=== PATIENT | male | born 1930 | race Caucasian/White ===

== ENCOUNTER 2016-09-21 18:21 | Inpatient (IN) | payer BC ==
--- NOTE | ~2016-09-21 | IDS ---
Interim Discharge Summary [facility] [address] [place]. [address] NAME: ELIANE FRANCES : [birth year] STATUS : ADM IN [facility]#: [id number] AGE: 85 ADM/REG DATE : 09/21/16 MR#: [id number] REPORT SERV DATE: 09/25/16 DICTATED BY: JR. LANTIGUA WILLIAM JOHN DATE: 09/25/16 REPORT STATUS : Draft TRANSCRIBED BY: BARBARA DATE: 09/25/16 ADMISSION DATE: 09/21/2016 DISCHARGE DATE: WORKING DIAGNOSES: 1. Small bowel obstruction. 2. Right intertrochanteric hip fracture status post open reduction and internal fixation by Dr. Pascal on 09/22/2016. 3. Postoperative anemia. 4. Hypothyroidism. 5. Essential hypertension. 6. Gastroesophageal reflux disease. 7. History of coronary artery disease status post AICD and angioplasty. 8. Paroxysmal atrial fibrillation. 9. Diabetes mellitus type 2 with hemoglobin A1c of 5.3. 10.Urinary tract infection status post Rocephin. 11.Acute on chronic kidney disease, which has largely resolved. OPERATIONS, PROCEDURES, AND TREATMENTS: Include: 1. Open reduction and internal fixation by Dr. Pascal on 09/22/2016. 2. Chest x-ray done on 09/21/2016, which showed no acute cardiopulmonary process. 3. Hip x-ray done on 09/21/2016, which showed comminuted intertrochanteric right femur fracture. 4. KUB done on 09/21/2016, which showed no acute cardiopulmonary disease. There was residual contrast in the colon. Gas was present throughout the small bowel and colon with minimal small bowel distention likely to be ileus. 5. Followup KUB done on 09/22/2016, which showed stable moderate fecal burden with residual oral contrast throughout the colon. 6. KUB done on 09/25/2016, which again showed oral contrast. CURRENT MEDICATIONS: Please see the daily progress note. HOSPITAL COURSE: Briefly, the patient is an 85-year-old with history of coronary artery disease, who was transferred from [facility] after a fall with resultant right hip fracture. The patient had been admitted to [facility] on 09/19/2016 with abdominal pain, nausea, vomiting, and constipation. He had an NG placed for decompression. He was also found to have acute kidney injury with a creatinine of 1.7 as well as urinary tract infection. For further details on initial exam, please see Dr. Maloney's dictated history and physical. The patient was admitted to [facility]. He was seen in consultation by Dr. Pascal, and underwent open reduction and internal fixation without complication. Regarding the ileus versus small-bowel obstruction, the patient had multiple serial KUBs which continued to show contrast throughout the bowel, but no abnormal dilations. The patient tolerated the diet. He will be started on MiraLAX. Interim Discharge Summary [place] [id number] [facility] [place]. [address] NAME: ELIANE FRANCES : [birth year] STATUS : ADM IN PAT#: [id number] AGE: 85 ADM/REG DATE : 09/21/16 MR#: [id number] REPORT SERV DATE: 09/25/16 DICTATED BY: JR. LANTIGUA WILLIAM JOHN DATE: 09/25/16 REPORT STATUS : Draft TRANSCRIBED BY: MODL DATE: 09/25/16 Regarding the patient's anemia, his hemoglobin has gone from 9.1 to 7.3, there was no obvious bleeding. The plan is to recheck in the morning, and if his hemoglobin is reasonably stable, we will discharge the patient. Regarding the patient's urinary tract infection, completed a course of Rocephin. Regarding his acute on chronic kidney disease, he is near baseline with a creatinine of 1.2 presently. The plan is for the patient to be observed to check a KUB. He had H and H in the morning. If these studies are normal, the patient can be discharged at any time. For today's exam and laboratory, please see daily progress note. WJF/BARBARA Saad Lantigua Jr, MD / [id number] CC: Saad Lantigua Jr, MD
--- NOTE | ~2016-09-21 | OP ---
Record Of Operation [facility] [address] [place]. [address] NAME: ELIANE FRANCES : [birth year] STATUS : ADM IN [facility]#: [id number] AGE: 85 ADM/REG DATE : 09/21/16 MR#: [id number] REPORT SERV DATE: 09/23/16 DICTATED BY: CHANTAL OROURKE DATE: 09/22/16 REPORT STATUS : Draft TRANSCRIBED BY: MODDelvis DATE: 09/22/16 DATE OF PROCEDURE: 09/22/2016 PREOPERATIVE DIAGNOSIS: Intertrochanteric femur fracture. POSTOPERATIVE DIAGNOSIS: Intertrochanteric femur fracture. OPERATION: [place]/intertrochanteric femur fracture. SIDE: Right. SIZE: See chart. ANESTHESIA: See chart. ESTIMATED BLOOD LOSS: 100 mL. TOURNIQUET TIME: None. SPECIMENS: None. ANESTHESIA: See chart. PROCEDURE: The patient was taken to the preoperative holding area. The patient was appropriately identified, marked and the consent form carefully checked. The patient was taken then to the operating room and anesthetic was induced per the anesthesiologist. The patient was carefully positioned, carefully padded, prepped and draped on the fracture table. Prior to the surgical prep a closed reduction was obtained by closed method using fluoroscopic guidance. The patient was then prepped and draped in the usual sterile fashion. Using fluoroscopic guidance, a straight lateral incision was made. This was followed by electrocautery through the fat, the IT band and the vastus, staying towards the posterior portion of the lateral vastus to decrease the amount of muscle tissue that was cut through. Meticulous hemostasis was obtained with electrocautery. Lateral femoral cortex was exposed further with periosteal elevator and appropriate retraction. A guide was then used to place a guidewire basically in the center of the head on AP and lateral x-ray views. This was followed by depth gauge and then triple reamer. Lag screw was placed over the guidewire. The sliding plate was then placed and impacted and checked to be sure it was down snug. The plate was held with a plate clamp distally and reduction again checked. The screw holes in the plate were then filled with screws in the standard fashion with drill depth gauge and then self-tapping screw placement. The screws were then tightened by hand. Record Of Operation [facility] [address] [place] [address] NAME: ELIANE FRANCES : [birth year] STATUS : ADM IN PAT#: [id number] AGE: 85 ADM/REG DATE : 09/21/16 MR#: [id number] REPORT SERV DATE: 09/23/16 DICTATED BY: CHANTAL OROURKE DATE: 09/22/16 REPORT STATUS : Draft TRANSCRIBED BY: MODL DATE: 09/22/16 All traction was released and the compression screw placed and tightened. Again x-ray views were checked to ascertain reduction and screw length. The wound was then irrigated and closed with sutures in the vastus. A medium drain was placed distally anteriorly between the vastus and the IT band, then sutured on the IT band, 2-0 subcutaneous, and keara in the skin. Wound dressed sterilely. The patient was awakened and carefully transferred to the bed and transferred to the recovery room without incident. COUNTS: Correct. WTB/MODL Ruby Orourke M.D. / [id number] CC: Jason Mccann MD
--- NOTE | ~2016-09-21 | HP ---
History And Physical [place] [id number] [place]. [address] NAME: ELIANE MEYER : [birth year] STATUS : ADM IN [facility]#: [id number] AGE: 85 ADM/REG DATE : 09/21/16 MR#: [id number] REPORT SERV DATE: 09/21/16 DICTATED BY: CHAPITO KELLY DATE: 09/21/16 REPORT STATUS : Draft TRANSCRIBED BY: MODDelvis DATE: 09/21/16 DATE OF ADMISSION: 09/21/2016 POINT OF ENTRY: Transfer from [facility]. PRIMARY CARE PHYSICIAN: Martin Amezcua MD PRIMARY ORTHOPEDIC SURGEON: Ruby Pascal M.D. CHIEF COMPLAINT: Fall with right hip fracture. HISTORY OF PRESENT ILLNESS: Mr. Meyer is an 85-year-old gentleman with history of coronary artery disease with prior PCI, hypertension, gastroesophageal reflux disease, non-insulin- dependent diabetes mellitus type 2, as well as a history of paroxysmal atrial fibrillation on aspirin, who is being transferred from [facility] for a fall with resultant right hip fracture. The patient was admitted to [facility] on 09/19/2016 for reports of abdominal pain, nausea, vomiting, and obstipation and found to have evidence of a small- bowel obstruction versus ileus on CT scan. NG tube was placed for decompression. The patient also found to have evidence of acute kidney injury with a creatinine of 1.7, urinary tract infection. Today, while he was down in Radiology at [facility] when he was transferring from the x-ray table to the wheelchair he suffered a mechanical fall striking his right side and right hip region. He denies loss of consciousness. Denies any head trauma. Subsequent x-rays reportedly showed a right hip fracture and reports I do not have the reports nor am I able to see the x-ray images. The patient was subsequently transferred to [facility] for high level of care so that the patient to be seen by Dr. Pascal for surgical correction. The patient states that he has had a bowel movement earlier today. He currently denies any abdominal pain, nausea, or vomiting. An NG tube is in place, however, is clamped at this. He denies any recent troubles with fevers, night sweats, chills, chest pain, palpitations, shortness of breath, dysuria, melena, hematochezia, hemoptysis, or hematemesis. Comprehensive review of systems otherwise negative unless listed in history of present illness. Again, the patient was diagnosed with urinary tract infection at [facility] on admission, placed on Rocephin. He has an NG tube in place with small-bowel obstruction. He is receiving IV fluids for elevated creatinine presumably above his baseline and so his nephrotoxic medications were being held. PREVIOUS MEDICAL HISTORY: 1. Coronary artery disease with prior myocardial infarction and PCI. 2. Hypertension. History And Physical [address] [address] NAME: ELIANE MEYER : [birth year] STATUS : ADM IN [facility]#: [id number] AGE: 85 ADM/REG DATE : 09/21/16 MR#: [id number] REPORT SERV DATE: 09/21/16 DICTATED BY: CHAPITO KELLY DATE: 09/21/16 REPORT STATUS : Draft TRANSCRIBED BY: MODDelvis DATE: 09/21/16 3. Gastroesophageal reflux disease. 4. Dhe-ooapian-janorgzrh diabetes mellitus type 2. 5. Prior history of small-bowel obstruction. 6. Prior history of diverticulitis requiring partial colectomy. 7. Paroxysmal atrial fibrillation, on aspirin. SURGICAL HISTORY: 1. Right total knee. 2. Appendectomy. 3. Cataract surgery. 4. Partial colectomy. 5. Bilateral inguinal hernia repair. 6. Pacemaker insertion. ALLERGIES: NO KNOWN DRUG ALLERGIES. HOME MEDICATIONS: Pending at the time of dictation. SOCIAL HISTORY: He is a former smoker. Denies any alcohol or illicits. Currently lives alone. FAMILY MEDICAL HISTORY: Mother of old age in her mid 90s. Father of complications of motor vehicle accident. Siblings with dementia as well as with complication of motor vehicle accident. LABS AND IMAGING: All obtained from transfer records from [facility]. These are all dated 09/21/2016 unless noted otherwise: 1. White count 5.7, hemoglobin 13.7, hematocrit is 42.9, and platelet count is 120. 2. Sodium is 141, potassium 4.7, chloride 110, carbon dioxide 22, BUN 28, creatinine 1.7, glucose is 152, calcium is 8.9, protein is 6.2, albumin is 3.4, bilirubin is 1.4, ALT is 13, AST is 16, and alkaline phosphatase is 55. 3. Urinalysis from 09/20/2016 shows spec gravity of 1.018, hazy, 68 white blood cells per high-power with 3+ leukocyte esterase, and few bacteria. 4. CT scan of the abdomen and pelvis dated 09/19/2016 shows an ileus versus possible small- bowel obstruction as well as cholelithiasis. 5. Again, I do not have the radiology report nor the images of the pelvic and right hip showing a right hip fracture. PHYSICAL EXAMINATION: VITAL SIGNS: Temperature is 98.3 degrees Fahrenheit, pulse is 83, respirations 18, saturating 98% on room air, and blood pressure is 120/56. GENERAL: The patient is awake, alert, in no acute distress. Resting comfortably in bed. He is a well-developed, well-nourished, elderly male. Family is at bedside. HEENT: Atraumatic and normocephalic. Moist mucous membranes. Pupils are equal, round, and reactive to light and accommodation. Extraocular eye movements intact. No scleral icterus. NECK: No jugular venous distention. No carotid bruits. CARDIAC: Regular rate and rhythm. No murmurs or gallops. Normal S1, S2. History And Physical [address] [address] NAME: ELIANE MEYER : [birth year] STATUS : ADM IN [facility]#: [id number] AGE: 85 ADM/REG DATE : 09/21/16 MR#: [id number] REPORT SERV DATE: 09/21/16 DICTATED BY: CHAPITO KELLY DATE: 09/21/16 REPORT STATUS : Draft TRANSCRIBED BY: BARBARA DATE: 09/21/16 LUNGS: Clear to auscultation bilaterally. No wheezes, rhonchi, or crackles. ABDOMEN: Hypoactive bowel sounds throughout but no rebound, guarding, or rigidity. Nontender, nondistended. Again, NG tube is in place but currently clamped. EXTREMITIES: Warm, perfused. No cyanosis, clubbing, or edema. The right hip is foreshortened and inward rotated but is intact neurovascularly distally. SKIN: Warm and dry. PSYCH: Affect appropriate. NEURO: Alert and oriented x3. Cranial nerves 2 through 12 grossly intact. Speech is normal. Gait not assessed. ASSESSMENT: Mr. Meyer is an 85-year-old gentleman, admitted on 09/19/2016 to his [facility] for small-bowel obstruction and urinary tract infection who suffered a mechanical fall while there with resultant right hip fracture. PROBLEM LIST: 1. Right hip fracture status post mechanical fall, present on admission. 2. Small-bowel obstruction versus ileus. 3. Acute kidney injury. 4. Urinary tract infection. 5. Hypertension. 6. Dio-clukhdt-ufvmaoroc diabetes mellitus type 2. PLAN: 1. Right hip fracture status post fall. We will consult Dr. Pascal of Orthopedic Surgery as the patient has seen him in the past. We will obtain chest x-ray, EKG, as well as plain films of the right hip and pelvic region in anticipation of surgery tomorrow. 2. Small-bowel obstruction. The patient denies any current abdominal pain, nausea, or vomiting. He reported a bowel movement earlier today. We will check a KUB, and if it does not show obvious evidence of obstruction, we will remove the NG tube but continue to keep him n.p.o. in anticipation of surgery tomorrow. 3. Urinary tract infection. The patient has received Rocephin for least two days at [facility]. We will plan for a total of five-day course of Rocephin. 4. Acute kidney injury. Continue to hold the patient's nephrotoxic medications. Provide IV fluid hydration. Follow up BMP. 5. Hypertension. The patient currently well controlled at this time. 6. Xoa-fqawgpo-xxmtmwwiy diabetes mellitus type 2. Place the patient on level 2 insulin sliding scale. 7. DVT prophylaxis. Heparin subcu. CODE STATUS: The patient wished to be full code. JCB/MODL Chapito Kelly MD History And Physical [address] [address] NAME: ELIANE MEYER : [birth year] STATUS : ADM IN [facility]#: [id number] AGE: 85 ADM/REG DATE : 09/21/16 MR#: [id number] REPORT SERV DATE: 09/21/16 DICTATED BY: CHAPITO KELLY DATE: 09/21/16 REPORT STATUS : Draft TRANSCRIBED BY: BARBARA DATE: 09/21/16 / [id number] CC: MD Martin Saravia MD W. Timothy Ballard, M.D.
--- NOTE | ~2016-09-21 | DS ---
Discharge Summary [facility] [address] [place]. [address] NAME: ELIANE FRANCES : [birth year] STATUS : DIS IN PAT#: [id number] AGE: 85 ADM/REG DATE : 09/21/16 MR#: [id number] REPORT SERV DATE: 09/29/16 DICTATED BY: JASON BOB DATE: 09/28/16 REPORT STATUS : Draft TRANSCRIBED BY: MODDelvis DATE: 09/28/16 ADMISSION DATE: 09/21/2016 DISCHARGE DATE: 09/28/2016 DISCHARGE DIAGNOSES: 1. Right intertrochanteric hip fracture, status post open reduction and internal fixation by Dr. Pascal. 2. Small bowel obstruction. 3. Postoperative anemia. 4. Hypothyroidism. 5. Essential hypertension. 6. Gastroesophageal reflux disease. 7. History of coronary artery disease, status post AICD and angioplasty. 8. History of paroxysmal atrial fibrillation. 9. Diabetes mellitus type 2 with hemoglobin A1c of 5.3. 10.Urinary tract infection, status post Rocephin therapy. 11.Acute kidney injury, now resolved. 12.Chronic kidney disease stage 3. CONSULTATIONS: 1. Orthopedic Surgeon, Dr. Alejandro Pascal. 2. Urology. OPERATION DONE DURING THIS ADMISSION: Open reduction and internal fixation by Dr. Pascal. HISTORY OF PRESENT ILLNESS: For detailed HPI, please make reference to Dr. Good Maloney's dictation on 09/21/2016. In brief, this is an 85-year-old male with medical history of coronary artery disease with prior PCI, hypertension, gastroesophageal reflux disease, non- insulin diabetes mellitus type 2, history of paroxysmal atrial fibrillation on aspirin, who was transferred from [facility] after a witnessed fall with resultant right hip fracture. Prior to arrival to [facility], orthopedic surgeon, Dr. Pascal, was contacted by the transfer hospital. Dr. Pascal accepted transfer of this patient for hip fracture repair. The patient was admitted to the Hospitalist Service. Of note, the patient was initially admitted to [facility] with concerns of bowel obstruction. The patient was on NG tube, which was clamped prior to being transferred to [facility]. HOSPITAL COURSE: 1. Right hip fracture, status post open reduction and internal fixation. On arrival to [facility], the patient underwent repair of the right hip, which the patient tolerated well without any significant complications. The patient was evaluated by Physical Therapy. It was noted at the time of discharge that the patient would require further rehabilitation at SNF. 2. Small bowel obstruction. The patient initially presented to [facility] with account of abdominal pain, nausea, and vomiting. CT of the abdomen was concerning for small bowel obstruction. The patient had an NG tube placed at [facility] prior to transfer on arrival to [facility]. The patient's NG tube was connected to Discharge Summary [address] [address] NAME: ELIANE FRANCES : [birth year] STATUS : DIS IN PAT#: [id number] AGE: 85 ADM/REG DATE : 09/21/16 MR#: [id number] REPORT SERV DATE: 09/29/16 DICTATED BY: JASON BOB DATE: 09/28/16 REPORT STATUS : Draft TRANSCRIBED BY: BARBARA DATE: 09/28/16 intermittent suction. The patient continued to have symptomatic relief. Repeat KUB shows significant improvement in the patient's abdominal ileus. The patient's NG tube was subsequently discontinued. The patient was placed on generous laxatives with significant bowel movement. The patient's diet was subsequently advanced from clear liquid diet to regular diet. The patient tolerated regular diet without any nausea, abdominal pain, or vomiting. 3. Urinary tract infection, which was present on admission. The patient was also receiving IV Rocephin prior to being transferred. The patient completed a total of five days IV antibiotics during the course of this admission. 4. Acute kidney injury. The patient's creatinine was initially mildly elevated at 1.71. The patient's creatinine trended down with gentle IV fluids. Etiology of BRUNILDA on chronic CKD likely related to prerenal azotemia secondary to persistent nausea, vomiting, and hypovolemia. 5. Anemia of chronic disease. The patient's hemoglobin was 9.7 on presentation. Postoperative, the patient's hemoglobin trended down to 8.0, remained stable. No evidence of acute blood loss. Heme stool was negative for occult blood. The patient's anemia, likely related to anemia of chronic disease rather than acute blood loss. The patient's hemoglobin remained stable at 8.3 throughout the course of this admission. The patient was advised to continue supplement and follow up with primary care physician as an outpatient. DISCHARGE CONDITION: Stable. DISCHARGE DISPOSITION: SNF. DISCHARGE DIET: Regular diet as tolerated. DICTATED BY: MD BRAULIO SaraviaO/BARBARA Jason Bob MD / [id number] CC: MD Ruby Saravia M.D. James C. Balvich, MD
[~2016-09-21 18:21] MED LIST: ASA5GR PO; C5; CORDARONE PO; GLUCPH PO; LEVOTHYROXIN50 MCG PO; LOP50 PO; MOBIC15 MG PO; PCET PO; PEP20 PO; PRIN2.5 PO; ZOCOR20 PO
[2016-09-21 21:43] LABS: BASOPHILS 0.2 %; BASOPHILS ABSOLUTE 0.01 10/3/uL (0.0-0.16); EOSINOPHILS 0.5 %; EOSINOPHILS ABSOLUTE 0.03 10/3/uL (0.0-0.53); HEMATOCRIT 37.6 % (40.0-51.0); HEMOGLOBIN 12.2 g/dL (13.6-17.8); IMMATURE GRANULOCYTES 0.2 %; IMMATURE GRANULOCYTES ABSOLUTE 0.01 10/3/uL (0.0-0.11); LYMPHOCYTES ABSOLUTE 0.86 10/3/uL (0.67-4.30); MEAN CORPUS HGB CONC 32.4 g/dL (32.0-36.0); MEAN CORPUSCULAR HEMOGLOB 32.1 pg (26.0-34.0); MEAN CORPUSCULAR VOLUME 98.9 fL (80-100); MEAN PLATELET VOLUME 9.6 fL (9.2-13.0); MONOCYTES 12.9 %; MONOCYTES ABSOLUTE 0.85 10/3/uL (0.21-1.20); NEUTROPHILS 73.2 %; NEUTROPHILS ABSOLUTE 4.84 10/3/uL (2.02-8.40); PLATELET COUNT 139 10/3/uL (150-400); WHITE BLOOD CELLS 6.6 10/3/uL (4.5-10.5)
[2016-09-21] MEDS ORDERED: PRIN2.5 PO (21:43)
[2016-09-21 21:44] LABS: MANUAL DIFF NO %
[2016-09-21] MEDS ORDERED: TOPXL50 PO (21:44)
[2016-09-21] MEDS ORDERED: BUM1 PO (21:44)
[2016-09-21] MEDS ORDERED: PEP20 PO (21:44)
[2016-09-21] MEDS ORDERED: CORDARONE PO (21:44)
[2016-09-21] MEDS ORDERED: ASABAYER PO (21:45)
[2016-09-21] MEDS ORDERED: SYN.025B PO (21:45)
[2016-09-21 21:50] LABS: INTERNATIONAL NORMAL RATI 1.2 UNITS (-); PARTIAL THROMBO TIME 32.1 SEC (22.5-37.2)
[2016-09-21 21:52] LABS: PROTIME (NOT ORD) 14.7 SEC (12.0-14.5)
[2016-09-21 21:57] LABS: A/G RATIO 0.8 (0.7-1.9); ALBUMIN 2.7 G/DL (3.5-5.0); ALKALINE PHOSPHATASE 56 U/L (45-117); BUN (BLOOD UREA NITROGEN) 25 MG/DL (6-23); CALCIUM, SERUM 8.7 MG/DL (8.5-10.4); CHLORIDE, SERUM 115 MMOL/L (96-112); CO2 (CARBON DIOXIDE) 22 MMOL/L (24-34); CREATININE 1.55 MG/DL (0.70-1.30); GFR AFRICAN AMERICAN 46 ML/MIN (>=60); GFR NON AFRICAN AMERICAN 40 ML/MIN (>=60); GLOBULIN 3.4 G/DL (2.5-4.1); GLUCOSE, SERUM 108 MG/DL (60-99); POTASSIUM, SERUM 4.3 MMOL/L (3.5-5.3); SGOT(AST) 16 U/L (5-40); SGPT(ALT) 20 U/L (5-65); SODIUM, SERUM 145 MMOL/L (135-148); TOTAL BILIRUBIN 1.3 MG/DL (0-1.2); TOTAL PROTEIN 6.1 G/DL (6.0-8.5)
[2016-09-22 08:26] LABS: FREE T4 1.18 NG/DL (0.76-1.46); ULTRASENSITIVE TSH 5.12 MCIU/ML (0.358-3.740)
[2016-09-22 20:34] LABS: HEMATOCRIT 29.4 % (40.0-51.0); HEMOGLOBIN 9.7 g/dL (13.6-17.8)
[2016-09-22 20:41] LABS: INTERNATIONAL NORMAL RATI 1.2 UNITS (-); PROTIME (NOT ORD) 15.2 SEC (12.0-14.5)
[2016-09-22 20:56] LABS: ALBUMIN 2.7 G/DL (3.5-5.0); ALKALINE PHOSPHATASE 51 U/L (45-117); BUN (BLOOD UREA NITROGEN) 27 MG/DL (6-23); CALCIUM, SERUM 8.5 MG/DL (8.5-10.4); CHLORIDE, SERUM 116 MMOL/L (96-112); CO2 (CARBON DIOXIDE) 24 MMOL/L (24-34); CREATININE 1.71 MG/DL (0.70-1.30); DIRECT BILIRUBIN 0.2 MG/DL (0.0-0.4); GFR AFRICAN AMERICAN 41 ML/MIN (>=60); GFR NON AFRICAN AMERICAN 35 ML/MIN (>=60); GLUCOSE, SERUM 112 MG/DL (60-99); INDIRECT BILIRUBIN(NOT ORDER) 0.8 MG/DL (0.1-0.9); POTASSIUM, SERUM 4.2 MMOL/L (3.5-5.3); SGOT(AST) 17 U/L (5-40); SGPT(ALT) 17 U/L (5-65); SODIUM, SERUM 148 MMOL/L (135-148); TOTAL PROTEIN 5.7 G/DL (6.0-8.5)
[2016-09-23 07:14] LABS: HEMATOCRIT 27.3 % (40.0-51.0); HEMOGLOBIN 9.1 g/dL (13.6-17.8)
[2016-09-23 07:20] LABS: INTERNATIONAL NORMAL RATI 1.2 UNITS (-); PROTIME (NOT ORD) 15.3 SEC (12.0-14.5)
[2016-09-23 07:36] LABS: BUN (BLOOD UREA NITROGEN) 29 MG/DL (6-23); CALCIUM, SERUM 8.5 MG/DL (8.5-10.4); CHLORIDE, SERUM 114 MMOL/L (96-112); CO2 (CARBON DIOXIDE) 23 MMOL/L (24-34); CREATININE 1.76 MG/DL (0.70-1.30); GFR AFRICAN AMERICAN 39 ML/MIN (>=60); GFR NON AFRICAN AMERICAN 34 ML/MIN (>=60); GLUCOSE, SERUM 103 MG/DL (60-99); POTASSIUM, SERUM 4.7 MMOL/L (3.5-5.3); SODIUM, SERUM 143 MMOL/L (135-148)
[2016-09-24 06:23] LABS: BASOPHILS 0 %; EOSINOPHILS 0.2 %; EOSINOPHILS ABSOLUTE 0.01 10/3/uL (0.0-0.53); IMMATURE GRANULOCYTES 0.8 %; IMMATURE GRANULOCYTES ABSOLUTE 0.04 10/3/uL (0.0-0.11); LYMPHOCYTES 8.2 %; LYMPHOCYTES ABSOLUTE 0.39 10/3/uL (0.67-4.30); MEAN CORPUSCULAR HEMOGLOB 33.1 pg (26.0-34.0); MEAN CORPUSCULAR VOLUME 97.1 fL (80-100); MEAN PLATELET VOLUME 9.8 fL (9.2-13.0); MONOCYTES 8.4 %; NEUTROPHILS 82.4 %; NEUTROPHILS ABSOLUTE 3.92 10/3/uL (2.02-8.40); PLATELET COUNT 105 10/3/uL (150-400); RBC DISTRIBUTION WIDTH 13.3 % (12.0-16.0); WHITE BLOOD CELLS 4.8 10/3/uL (4.5-10.5)
[2016-09-24 06:26] LABS: HEMATOCRIT 23.5 % (40.0-51.0); MANUAL DIFF NO %; RED CELL COUNT 2.42 10/6/uL (4.7-6.1)
[2016-09-24 06:29] LABS: INTERNATIONAL NORMAL RATI 1.2 UNITS (-); PROTIME (NOT ORD) 15.2 SEC (12.0-14.5)
[2016-09-24 06:35] LABS: BUN (BLOOD UREA NITROGEN) 27 MG/DL (6-23); CALCIUM, SERUM 8.3 MG/DL (8.5-10.4); CHLORIDE, SERUM 108 MMOL/L (96-112); CO2 (CARBON DIOXIDE) 22 MMOL/L (24-34); CREATININE 1.63 MG/DL (0.70-1.30); GFR AFRICAN AMERICAN 43 ML/MIN (>=60); GFR NON AFRICAN AMERICAN 37 ML/MIN (>=60); POTASSIUM, SERUM 3.9 MMOL/L (3.5-5.3); SODIUM, SERUM 137 MMOL/L (135-148)
[2016-09-24 06:36] LABS: GLUCOSE, SERUM 126 MG/DL (60-99)
[2016-09-25 06:28] LABS: HEMATOCRIT 22.2 % (40.0-51.0); HEMOGLOBIN 7.3 g/dL (13.6-17.8); MEAN CORPUS HGB CONC 32.9 g/dL (32.0-36.0); MEAN CORPUSCULAR HEMOGLOB 32.3 pg (26.0-34.0); MEAN CORPUSCULAR VOLUME 98.2 fL (80-100); MEAN PLATELET VOLUME 10.4 fL (9.2-13.0); PLATELET COUNT 90 10/3/uL (150-400); RBC DISTRIBUTION WIDTH 13.6 % (12.0-16.0); RED CELL COUNT 2.26 10/6/uL (4.7-6.1)
[2016-09-25 06:35] LABS: MANUAL DIFF YES %
[2016-09-25 06:36] LABS: INTERNATIONAL NORMAL RATI 1.3 UNITS (-); PROTIME (NOT ORD) 15.6 SEC (12.0-14.5)
[2016-09-25 06:44] LABS: CALCIUM, SERUM 7.9 MG/DL (8.5-10.4); CHLORIDE, SERUM 112 MMOL/L (96-112); CO2 (CARBON DIOXIDE) 22 MMOL/L (24-34); CREATININE 1.18 MG/DL (0.70-1.30); GFR AFRICAN AMERICAN 64 ML/MIN (>=60); GFR NON AFRICAN AMERICAN 55 ML/MIN (>=60); POTASSIUM, SERUM 4.1 MMOL/L (3.5-5.3); SODIUM, SERUM 141 MMOL/L (135-148)
[2016-09-25 06:48] LABS: BUN (BLOOD UREA NITROGEN) 22 MG/DL (6-23); GLUCOSE, SERUM 78 MG/DL (60-99)
[2016-09-25 07:44] LABS: BAND NEUTROPHILS 4 %; EOSINOPHILS 1 %; EOSINOPHILS ABSOLUTE (CALC) 0.05 10/3/uL (0.0-0.53); LYMPHOCYTES 18 %; METAMYELOCYTES 2 %; NEUTROPHILS ABSOLUTE (CALC) 3.95 10/3/uL (2.02-8.40); SEGMENTED NEUTROPHIL (0) 75 %; TOTAL NUCLEATED CELLS 100
[2016-09-25 07:45] LABS: PLATELET ESTIMATE SLT DEC (ADEQUATE); ROULEAUX FORMATION 1+
[2016-09-25 19:13] LABS: HEMATOCRIT 23.8 % (40.0-51.0); HEMOGLOBIN 8.1 g/dL (13.6-17.8)
[2016-09-26 06:40] LABS: HEMATOCRIT 23.1 % (40.0-51.0); HEMOGLOBIN 7.7 g/dL (13.6-17.8)
[2016-09-26 06:42] LABS: INTERNATIONAL NORMAL RATI 1.3 UNITS (-); PROTIME (NOT ORD) 16.3 SEC (12.0-14.5)
[2016-09-26 07:02] LABS: BUN (BLOOD UREA NITROGEN) 19 MG/DL (6-23); CALCIUM, SERUM 8.4 MG/DL (8.5-10.4); CHLORIDE, SERUM 109 MMOL/L (96-112); CO2 (CARBON DIOXIDE) 24 MMOL/L (24-34); CREATININE 1.16 MG/DL (0.70-1.30); GFR AFRICAN AMERICAN 65 ML/MIN (>=60); GFR NON AFRICAN AMERICAN 56 ML/MIN (>=60); GLUCOSE, SERUM 81 MG/DL (60-99); SODIUM, SERUM 139 MMOL/L (135-148)
[2016-09-26 07:03] LABS: POTASSIUM, SERUM 3.2 MMOL/L (3.5-5.3)
[2016-09-26 13:41] LABS: HEMATOCRIT 24.5 % (40.0-51.0); HEMOGLOBIN 8.3 g/dL (13.6-17.8)
[2016-09-27 06:14] LABS: BASOPHILS 0.2 %; BASOPHILS ABSOLUTE 0.01 10/3/uL (0.0-0.16); EOSINOPHILS ABSOLUTE 0.16 10/3/uL (0.0-0.53); HEMATOCRIT 24.6 % (40.0-51.0); HEMOGLOBIN 8.3 g/dL (13.6-17.8); IMMATURE GRANULOCYTES 4.5 %; IMMATURE GRANULOCYTES ABSOLUTE 0.24 10/3/uL (0.0-0.11); INTERNATIONAL NORMAL RATI 1.3 UNITS (-); LYMPHOCYTES 13.2 %; LYMPHOCYTES ABSOLUTE 0.71 10/3/uL (0.67-4.30); MANUAL DIFF NO %; MEAN CORPUS HGB CONC 33.7 g/dL (32.0-36.0); MEAN CORPUSCULAR HEMOGLOB 32.7 pg (26.0-34.0); MEAN CORPUSCULAR VOLUME 96.9 fL (80-100); MEAN PLATELET VOLUME 9.6 fL (9.2-13.0); MONOCYTES 8.5 %; MONOCYTES ABSOLUTE 0.46 10/3/uL (0.21-1.20); NEUTROPHILS 70.6 %; NEUTROPHILS ABSOLUTE 3.81 10/3/uL (2.02-8.40); PLATELET COUNT 148 10/3/uL (150-400); RBC DISTRIBUTION WIDTH 13.7 % (12.0-16.0); RED CELL COUNT 2.54 10/6/uL (4.7-6.1); WHITE BLOOD CELLS 5.4 10/3/uL (4.5-10.5)
[2016-09-27 06:29] LABS: BUN (BLOOD UREA NITROGEN) 18 MG/DL (6-23); CALCIUM, SERUM 8.3 MG/DL (8.5-10.4); CHLORIDE, SERUM 109 MMOL/L (96-112); CO2 (CARBON DIOXIDE) 25 MMOL/L (24-34); CREATININE 1.06 MG/DL (0.70-1.30); GFR AFRICAN AMERICAN 73 ML/MIN (>=60); GFR NON AFRICAN AMERICAN 63 ML/MIN (>=60); GLUCOSE, SERUM 86 MG/DL (60-99); POTASSIUM, SERUM 3.5 MMOL/L (3.5-5.3); SODIUM, SERUM 142 MMOL/L (135-148)
[2016-09-28 07:22] LABS: INTERNATIONAL NORMAL RATI 1.3 UNITS (-); PROTIME (NOT ORD) 15.9 SEC (12.0-14.5)
[2016-09-28 14:43] LABS: WBC (NOT ORDERED) (RFLEX) 0 (0-5)
[2016-09-28 16:50] LABS: ASCORBIC ACID (UR NOT ORDER) NEG (NEG); BILIRUBIN, URINE NEGATIVE (NEG); KETONE, URINE NEGATIVE (NEG); LEUKOCYTE ESTERASE(NOT OR NEG (NEG)
== END 2016-09-28 18:05 | DRG 481 ==
LOC: 1SO 18:21
PROVIDERS: Hospitalist; Internal Medicine; Nurse Practitioner Acute Care; Specialist
PROC: 0QS604Z Reposition Right Upper Femur with Internal Fixation Device, Open Approach (ICD-10-PCS; principal; 2016-09-22 15:15)
DX: S72.141A Displaced intertrochanteric fracture of right femur, initial encounter for closed fracture (principal); K56.60 Unspecified intestinal obstruction; N17.9 Acute kidney failure, unspecified; K56.0 Paralytic ileus; N39.0 Urinary tract infection, site not specified; I95.9 Hypotension, unspecified; E11.22 Type 2 diabetes mellitus with diabetic chronic kidney disease; I48.0 Paroxysmal atrial fibrillation; E86.1 Hypovolemia; N18.3 Chronic kidney disease, stage 3 (moderate); K21.9 Gastro-esophageal reflux disease without esophagitis; I25.10 Atherosclerotic heart disease of native coronary artery without angina pectoris; N40.1 Benign prostatic hyperplasia with lower urinary tract symptoms; K80.20 Calculus of gallbladder without cholecystitis without obstruction; E03.9 Hypothyroidism, unspecified; D63.1 Anemia in chronic kidney disease; I12.9 Hypertensive chronic kidney disease with stage 1 through stage 4 chronic kidney disease, or unspecified chronic kidney disease; W18.30XA Fall on same level, unspecified, initial encounter; Z79.82 Long term (current) use of aspirin; Z79.01 Long term (current) use of anticoagulants; Z87.891 Personal history of nicotine dependence; I25.2 Old myocardial infarction; Z95.0 Presence of cardiac pacemaker; Z90.49 Acquired absence of other specified parts of digestive tract; Z96.651 Presence of right artificial knee joint; Z98.61 Coronary angioplasty status
CPT/HCPCS: 36415; 71010; 73502-RT; 74000; 76000; 80048; 80053; 80076; 81001; 82272; 82962; 83036; 84439; 84443; 85014; 85018; 85025; 85610; 85730; 86850; 86900; 86901; 86920; 93005; 97110-GP; 97112-GP; 97116-GP; 97162-GP; 97166-GO; 97530-GP; 97535-GO; A9270-GY; C1713; J0690; J1170; J1885; J2270; J2370; J2405; J2710; J2795; J3010; P9045